=== PATIENT | male | born 2000 | race Caucasian/White ===

== ENCOUNTER 2023-10-02 23:10 | Emergency (ER) | payer MEDICAID ==
[~2023-10-02] VITALS: Ht 162.6 cm; Wt 61.3 kg
[2023-10-02 23:25] VITALS: BP 125/82; PULSE 108; RESP 20; TEMP 98.3; O2SAT 100
[2023-10-02] MEDS ORDERED: SODIUM CHLORIDE 0.9% 1,000 ML IV ONE (23:45)
[2023-10-02 23:55] LABS: BASOPHILS % 0.5 % (0.0-2.0); EOSINOPHILS % 0.1 % (0.0-5.0); HEMATOCRIT. 48.6 % (42.0-52.0); HEMOGLOBIN. 16.8 g/dL (14.0-18.0); LYMPHOCYTES % 16.5 % (20.0-50.0); MEAN CORPUSCULAR HEMOGLOBIN 30.4 pg (28.0-32.0); MEAN CORPUSCULAR HGB CONC 34.5 g/dL (31.0-37.0); MEAN CORPUSCULAR VOLUME 88.3 fL (80.0-94.0); MEAN PLATELET VOLUME 9.3 fl (7.4-10.4); MONOCYTES % 6.5 % (2.0-8.0); NEUTROPHILS % 76.4 % (40.0-76.0); PLATELET 282 x1000/uL (130-400); RED BLOOD CELL COUNT 5.51 mill/uL (4.7-6.1); WHITE BLOOD COUNT 12.7 x1000/uL (4.5-11.0)
[2023-10-03 00:09] LABS: ACETAMINOPHEN 2 ug/mL (10-30); ALANINE AMINOTRANSFERASE < 7 IU/L (10-49); ALBUMIN 5.5 g/dL (3.2-4.8); ASPARTATE AMINOTRANSFERASE 22 IU/L (<34); BILIRUBIN TOTAL 3.2 mg/dL (0.1-1.0); CALCIUM 10.9 mg/dL (8.7-10.4); CARBON DIOXIDE 20 mEq/L (21-32); CHLORIDE 109 mEq/L (98-107); CREATINE KINASE 132 IU/L (46-171); CREATININE 0.9 mg/dL (0.6-1.3); GLUCOSE 107 mg/dL (70-105); POTASSIUM 3.4 mEq/L (3.5-5.1); PROTEIN TOTAL 9.3 g/dL (6.0-8.3); SODIUM 141 mEq/L (136-145); UREA NITROGEN BLOOD 6 mg/dL (9-23)
[2023-10-03 00:16] LABS: ETHANOL BLOOD < 10 mg/dL (<10)
[2023-10-03 01:39] LABS: CLARITY URINE CLOUDY (CLEAR); COLOR URINE DARK YELLOW (YELLOW); GLUCOSE URINE NEGATIVE (NEGATIVE); KETONES URINE 3+ (NEGATIVE); LEUKOCYTE ESTERASE URINE NEGATIVE (NEGATIVE); NITRITE URINE NEGATIVE (NEGATIVE); OCCULT BLOOD URINE NEGATIVE (NEGATIVE); PROTEIN URINE TRACE (NEGATIVE); SPECIFIC GRAVITY URINE 1.037 (1.005-1.030)
[2023-10-03 01:46] LABS: *AMPHETAMINES SCREEN URINE NEGATIVE (NEGATIVE); *BARBITURATES SCREEN URINE NEGATIVE (NEGATIVE); *BENZODIAZEPINES SCREEN URINE NEGATIVE (NEGATIVE); *COCAINE SCREEN URINE NEGATIVE (NEGATIVE); CANNABINOID URINE SCREEN PRESUMPTIVE POSITIVE (NEGATIVE); ECSTASY MDMA SCREEN URINE NEGATIVE (NEGATIVE); METHADONE URINE SCREEN Neg (NEGATIVE); OPIATES URINE SCREEN NEGATIVE (NEGATIVE); PHENCYCLIDINE URINE SCREEN NEGATIVE (NEGATIVE)
[2023-10-03 01:55] LABS: BACTERIA URINE TRACE; CALCIUM OXALATE CRYSTALS URINE 1+ /lpf; SQUAMOUS EPITHELIAL CELL URINE FEW /lpf (RARE/1+); WBC URINE 0-2 /hpf (0-2)
== END 2023-10-03 05:33 | disposition left against medical advice (07) ==
LOC: ER 23:10
DX: Z53.21 Procedure and treatment not carried out due to patient leaving prior to being seen by health care provider (principal)
CPT/HCPCS: 80053; 80307; 80329; 80320; 82550; 85025; 36415; 93005; 99281; 80305; 81003; J7030; G0480

== ENCOUNTER 2024-10-29 10:57 | Emergency (ER) | payer MEDICAID ==
[~2024-10-29] VITALS: Ht 160 cm; Wt 61.0 kg
[2024-10-29 11:00] VITALS: O2SAT 98
[2024-10-29 12:13] LABS: BASOPHILS % 0.7 % (0.0-2.0); EOSINOPHILS % 1.4 % (0.0-5.0); HEMATOCRIT. 44.8 % (42.0-52.0); HEMOGLOBIN. 15.5 g/dL (14.0-18.0); LYMPHOCYTES % 25.2 % (20.0-50.0); MEAN CORPUSCULAR HEMOGLOBIN 30.7 pg (28.0-32.0); MEAN CORPUSCULAR HGB CONC 34.5 g/dL (31.0-37.0); MEAN PLATELET VOLUME 9.8 fl (7.4-10.4); MONOCYTES % 6.3 % (2.0-8.0); NEUTROPHILS % 66.4 % (40.0-76.0); PLATELET 226 x1000/uL (130-400); RED BLOOD CELL COUNT 5.03 mill/uL (4.7-6.1); RED CELL DISTRIBUTION WIDTH 12.9 % (11.6-14.6); WHITE BLOOD COUNT 8.2 x1000/uL (4.5-11.0)
[2024-10-29 12:29] LABS: CHLORIDE 109 mEq/L (98-107); SODIUM 140 mEq/L (136-145)
[2024-10-29 12:30] LABS: CALCIUM 9.8 mg/dL (8.7-10.4); CARBON DIOXIDE 25 mEq/L (21-32)
[2024-10-29 12:35] LABS: GLUCOSE 91 mg/dL (70-105); UREA NITROGEN BLOOD 7 mg/dL (9-23)
[2024-10-29 12:36] LABS: TROPONIN I HIGH SENSITIVITY 10 ng/L (3.0-53)
[2024-10-29 13:09] LABS: CREATININE 0.8 mg/dL (0.6-1.3)
[2024-10-29 15:01] VITALS: BP 106/91; PULSE 65; RESP 15; TEMP 36.94740; O2SAT 100
== END 2024-10-29 15:31 | disposition short-term general hospital (02) ==
LOC: ER 10:57 → CANBEDREQ 14:03 → ER 15:31
DX: I48.91 Unspecified atrial fibrillation (principal); F41.9 Anxiety disorder, unspecified
CPT/HCPCS: 80048; 83880; 85025; 84484; 36415; 71045; 93005; 99285; Z7610